=== PATIENT | female | born 1990 | race Two or more races ===

== ENCOUNTER 2017-02-18 09:56 | Outpatient (CLI) | payer OTHER ==
--- NOTE | 2017-02-19 08:15 | Ultrasound Report ---
EXAMINATION: RIGHT BREAST ULTRASOUND 02/18/2017 CLINICAL INDICATION: Painful palpable abnormality, right lateral breast. TECHNIQUE: Real-time scanning was performed with insurance service representative static images obtained. FINDINGS: Ultrasound of the painful palpable region identified by the patient was performed. Heterogeneous parenchyma is present. No discrete solid or cystic mass is seen. No sonographically suspicious findings are appreciated. IMPRESSION: NEGATIVE EXAMINATION. RECOMMENDATION: Continued clinical surveillance. Routine annual screening to commence at age 40, unless otherwise clinically indicated. BIRADS Category 1 - negative. TD: 02/18/2017 14:28 [facility]
== END 2017-02-18 09:57 | disposition home or self-care (01) ==
LOC: DI 09:56
PROVIDERS: ATTEND Obstetrics & Gynecology
DX: N64.4 Mastodynia (principal); N63.11 Unspecified lump in the right breast, upper outer quadrant
CPT/HCPCS: 76642

== ENCOUNTER 2019-05-22 08:00 | Outpatient (CLI) | payer MEDICAID, OTHER ==
[2019-05-23 11:10] LABS: HIV AG/AB 4TH GEN NON-REACTIVE (NON-REACTIVE)
[2019-05-23 11:25] LABS: HEPATITIS B SURFACE ANTIGEN NON-REACTIVE (NON-REACTIVE)
[2019-05-23 11:26] LABS: HEPATITIS C ANTIBODY NON-REACTIVE (NON-REACTIVE)
[2019-05-26 12:39] LABS: HSV 2 IGG TYPE SPECIFIC AB <0.90 index
== END 2019-05-22 23:59 | disposition home or self-care (01) ==
LOC: LAB.WCP 08:00
PROVIDERS: ATTEND Nurse Practitioner Obstetrics & Gynecology
DX: Z11.3 Encounter for screening for infections with a predominantly sexual mode of transmission (principal)
CPT/HCPCS: 36415; 81599; 86592; 86695; 86696; 86803; 87340; 87389

== ENCOUNTER 2019-05-22 08:00 | Outpatient (CLI) | payer MEDICAID, OTHER ==
[2019-05-22 20:47] LABS: CANDIDA GROUP DNA NEGATIVE (NEGATIVE); CANDIDA KRUSEI DNA NEGATIVE (NEGATIVE); TRICHOMONAS VAGINALIS DNA NEGATIVE (NEGATIVE)
== END 2019-05-22 23:59 | disposition home or self-care (01) ==
LOC: LAB.R 08:00
PROVIDERS: ATTEND Nurse Practitioner Obstetrics & Gynecology
DX: N89.8 Other specified noninflammatory disorders of vagina (principal)
CPT/HCPCS: 87661; 87801

== ENCOUNTER 2019-06-10 11:19 | Outpatient (CLI) | payer MEDICAID ==
[2019-06-10 16:36] LABS: BASOPHILS # (AUTO) 0.1 10^3/uL (0.0-0.1); BASOPHILS % (AUTO) 1.9 %; EOSINOPHILS # (AUTO) 0.2 10^3/uL (0.0-0.7); EOSINOPHILS % (AUTO) 2.9 %; HGB - HEMOGLOBIN 12.5 g/dL (12.0-16.0); LYMPHOCYTES # (AUTO) 1.8 10^3/uL (1.5-3.5); MEAN CORPUSCULAR HGB CONC 31.9 g/dL (32.0-36.0); MEAN PLATELET VOLUME 10.8 fL (7.9-10.8); MONOCYTES # (AUTO) 0.4 10^3/uL (0.0-1.0); MONOCYTES % (AUTO) 6.2 %; NEUTROPHILS # (AUTO) 3.4 10^3/uL (1.5-6.6); NEUTROPHILS % (AUTO) 57.7 %; PLT - PLATELET COUNT 342 10^3/uL (130-450); RED BLOOD COUNT 4.17 10^6/uL (4.20-5.40); RED CELL DISTRIBUTION WIDTH 12.9 % (12.0-15.0); WHITE BLOOD COUNT 5.8 x10^3/uL (4.8-10.8)
[2019-06-10 16:49] LABS: ALBUMIN 4.6 g/dL (3.2-5.5); ALBUMIN/GLOBULIN RATIO 1.4 (1.0-2.2); BILIRUBIN,TOTAL 0.4 mg/dL (0.2-1.0); CALCIUM 9.2 mg/dL (8.5-10.3); CREATININE 0.6 mg/dL (0.4-1.0); TOTAL PROTEIN 7.9 g/dL (6.7-8.2)
[2019-06-10 16:56] LABS: HB2 TOTAL 12.7 g/dL; HEMOGLOBIN A1C 0.43 g/dL; HEMOGLOBIN A1C % 5.2 % (4.6-6.2)
== END 2019-06-10 23:59 | disposition home or self-care (01) ==
LOC: LAB.WCP 11:19
PROVIDERS: ATTEND Nurse Practitioner Family
DX: R00.2 Palpitations (principal); R53.83 Other fatigue; Z83.3 Family history of diabetes mellitus; F32.9 Major depressive disorder, single episode, unspecified; F41.9 Anxiety disorder, unspecified
CPT/HCPCS: 36415; 80053; 83036; 84443; 85025

== ENCOUNTER 2019-12-28 10:45 | Outpatient (CLI) | payer MEDICAID | END 2019-12-28 10:46 | disposition home or self-care (01) | LOC: COV 10:45 | PROVIDERS: ATTEND Family Medicine | DX: M79.10 Myalgia, unspecified site (principal); R53.83 Other fatigue; R68.83 Chills (without fever); R09.81 Nasal congestion; Z20.828 Contact with and (suspected) exposure to other viral communicable diseases ==

== ENCOUNTER 2020-02-09 11:00 | Outpatient (CLI) | payer MEDICAID ==
[2020-02-09 18:55] LABS: H. PYLORIS ANTIGEN STL NEGATIVE (Negative)
== END 2020-02-09 23:59 | disposition home or self-care (01) ==
LOC: LAB.WCP 11:00
PROVIDERS: ATTEND Family Medicine
DX: R10.13 Epigastric pain (principal)
CPT/HCPCS: 87338

== ENCOUNTER → 2020-04-06 | Outpatient (CLI) | payer MEDICAID | LOC: LAB 15:20 | PROVIDERS: ATTEND Nurse Practitioner | DX: J03.90 Acute tonsillitis, unspecified (principal) | CPT/HCPCS: 87070; 87077 ==